=== PATIENT | female | born 2000 | race Two or more races ===

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

== ENCOUNTER 2019-02-18 22:20 | Emergency (ER) | payer MEDICAID ==
[~2019-02-18] VITALS: Ht 154.9 cm; Wt 101.9 kg
--- NOTE | 2019-02-18 23:13 | NUR ---
PT AMBULATED TO BATHROOM, UPRIGHT STEADY GAIT.
[2019-02-18 23:42] LABS: HCG UR SG 1.029 (1.003-1.030)
[2019-02-18 23:58] LABS: MICROSCOPIC INDICATED
[2019-02-18 23:59] LABS: CULTURE INDICATED? YES
[2019-02-19 00:01] LABS: BASOPHILS # (AUTO) 0.07 x10^3/uL (0-0.3); BASOPHILS % (AUTO) 1 % (0-1); EOSINOPHILS # (AUTO) 0.23 x10^3/uL (0-0.8); EOSINOPHILS % (AUTO) 2 % (1-7); LYMPHOCYTES # (AUTO) 2.24 x10^3/uL (1-6.1); LYMPHOCYTES % (AUTO) 19 % (22-44); MD NO; MEAN CORPUSCULAR HEMOGLOBIN 24.1 pg (27.0-34.8); MEAN CORPUSCULAR HGB CONC 31.4 g/dL (32.4-35.8); MEAN CORPUSCULAR VOLUME 76.5 fL (80-100); MEAN PLATELET VOLUME 9.5 fL (7.4-10.4); MONOCYTES # (AUTO) 0.89 x10^3/uL (0-1.4); MONOCYTES % (AUTO) 8 % (2-9); NEUTROPHILS # (AUTO) 8.48 x10^3/uL (1.8-8.0); NEUTROPHILS % (AUTO) 71 % (42-75); PLATELET COUNT 413 x10^3/uL (130-400); RED BLOOD COUNT 4.54 x10^6/uL (3.82-5.3); RED CELL DISTRIBUTION WIDTH 17.6 % (9.6-15.2)
[2019-02-19 00:10] LABS: ANION GAP 7 mmol/L (5-15); CALCIUM 8.4 mg/dL (8.5-10.1); CHLORIDE 110 mmol/L (98-107); CREATININE 0.69 mg/dL (0.55-1.02)
[2019-02-19 00:31] VITALS: BP 138/84
--- NOTE | 2019-02-19 00:32 | NUR ---
D/C INST REVIEWED AND QUESTIONS ANSWERED. PT VERBALIZES UNDERSATNDING. PT D/C HOME UPRIGHT STEADY GAIT.
== END 2019-02-19 00:41 | disposition home or self-care (01) ==
LOC: ED 23:59
DX: N93.8 Other specified abnormal uterine and vaginal bleeding (principal); M54.5 Low back pain
CPT/HCPCS: 36415; 80048; 81001; 81025; 85025; 87086; 93005; 99284

== ENCOUNTER 2019-02-23 15:48 | Emergency (ER) | payer MEDICAID ==
[~2019-02-23] VITALS: Ht 154.9 cm; Wt 97.4 kg
[2019-02-23 16:03] VITALS: BP 142/90
[2019-02-23] MEDS ORDERED: FAMOTIDINE 20 MG TABLET ONE (16:21)
--- NOTE | 2019-02-23 16:26 | NUR ---
Patient given discharge instructions and they have confirmed that they understand the instructions. Patient ambulatory with steady gait.
[2019-02-23] MEDS ORDERED: FAMOTIDINE 20 MG TABLET PO ONE (16:30)
== END 2019-02-23 17:29 | disposition home or self-care (01) ==
LOC: ED 16:53
DX: L23.2 Allergic contact dermatitis due to cosmetics (principal); G43.909 Migraine, unspecified, not intractable, without status migrainosus
CPT/HCPCS: 99284; J7512; Q0177

== ENCOUNTER 2020-11-14 07:49 | Emergency (ER) | payer MEDICAID ==
[~2020-11-14] VITALS: Ht 157.5 cm; Wt 106.3 kg
--- NOTE | 2020-11-14 08:05 | NUR ---
VAGINAL BLEEDING, LOW BACK PAIN AND VAGINAL PAIN BEGINNING LAST NIGHT AT 1999. LMP=2/2. HOME TEST POSITIVE THREE TIMES G1(2?) HAS SATURATED 3 PADS THIS AM
--- NOTE | 2020-11-14 08:36 | NUR ---
STRAIGHT CATH UA OBTAINED-WALKED TO LAB LAB AT BEDSIDE PATIENT UPDATED ON ESTIMATED POC
[2020-11-14 08:47] LABS: BASOPHILS % (AUTO) 1 % (0-1); EOSINOPHILS % (AUTO) 1 % (1-7); LYMPHOCYTES % (AUTO) 20 % (22-44); MD NO; MEAN CORPUSCULAR HEMOGLOBIN 25.1 pg (27.0-34.8); MEAN CORPUSCULAR HGB CONC 32.5 g/dL (32.4-35.8); MEAN PLATELET VOLUME 9.2 fL (7.4-10.4); MONOCYTES % (AUTO) 8 % (2-9); NEUTROPHILS % (AUTO) 70 % (42-75); PLATELET COUNT 331 x10^3/uL (130-400); RED BLOOD COUNT 4.83 x10^6/uL (3.82-5.3); RED CELL DISTRIBUTION WIDTH 18.4 % (9.6-15.2)
[2020-11-14 08:47] LABS: MICROSCOPIC INDICATED
--- NOTE | 2020-11-14 09:15 | NUR ---
WITH REASSESSMENT NO INCREASE IN BLEEDING TO ULTRASOUND AT 0915AM
[2020-11-14 10:25] VITALS: BP 137/80
== END 2020-11-14 10:26 | disposition home or self-care (01) ==
LOC: ED 09:52
DX: N93.8 Other specified abnormal uterine and vaginal bleeding (principal); R10.2 Pelvic and perineal pain; M54.5 Low back pain
CPT/HCPCS: 36415; 76801; 81001; 84702; 85025; 86901; 99284